=== PATIENT | female | born 1970 | race Caucasian/White ===

== ENCOUNTER 2024-01-11 10:24 | Outpatient (OUT) | payer BC, SELFPAY ==
--- NOTE | 2024-01-11 10:37 | MM_ITS ---
Patient Name: BRINA CONKLIN MR#: [id number] : 1970 Exam Date: 01/11/2024 Ordering Doctor: Jeanette Del Rio RADIOLOGY REPORT PROCEDURE: MM TOMOSYNTHESIS SCREENING BI COMPARISON: None. INDICATIONS: Screening for malignant neoplasm Calculator Name NCI Breast Cancer Risk Assessment Tool 5 Year Breast Cancer Risk Not Reported. Lifetime Breast Cancer Risk Not Reported. Personal Breast Cancer No Personal Ovarian Cancer No Treatments None Family Cancers None LOCATION: [facility] BREAST COMPOSITION: There are scattered areas of fibroglandular density. FINDINGS: DIAGNOSTIC CATEGORY 2--BENIGN FINDING: Scattered benign-appearing calcifications are present. Nodular parenchymal pattern. RIGHT BREAST: No significant suspicious finding. LEFT BREAST: No significant suspicious finding. Micro clip marker lower inner quadrant RECOMMENDATIONS: ROUTINE MAMMOGRAM AND CLINICAL EVALUATION IN 12 MONTHS. PLEASE NOTE: A NORMAL MAMMOGRAM DOES NOT EXCLUDE THE POSSIBILITY OF BREAST CANCER. A CLINICALLY SUSPICIOUS PALPABLE LUMP SHOULD BE BIOPSIED. Dictated by: Soham Brandon MD on 01/27/2024 at 07:22 Approved by: Soham Brandon MD on 01/27/2024 at 07:35
== END 2024-01-11 10:25 | disposition home or self-care (01) ==
LOC: MAMMO 10:28
PROVIDERS: PCP Nurse Practitioner; Visit Provider Nurse Practitioner
DX: Z12.31 Encounter for screening mammogram for malignant neoplasm of breast (principal)
CPT/HCPCS: 77063; 77067